=== PATIENT | female | born 1990 | race Caucasian/White ===

== ENCOUNTER 2019-04-22 06:04 | Inpatient (IN) | payer MEDICAID, SELFPAY | END 2019-04-24 11:05 | disposition home or self-care (01) | DRG 785 | PROVIDERS: Admitting Provider Obstetrics & Gynecology; Visit Provider Obstetrics & Gynecology | DX: O34.211 Maternal care for low transverse scar from previous cesarean delivery (principal); N85.8 Other specified noninflammatory disorders of uterus; Z3A.40 40 weeks gestation of pregnancy; Z37.0 Single live birth; O69.81X0 Labor and delivery complicated by cord around neck, without compression, not applicable or unspecified; Z30.2 Encounter for sterilization ==

== ENCOUNTER 2020-04-21 18:13 | Emergency (ER) | payer MEDICAID, SELFPAY ==
[2020-04-21 18:44] VITALS: BP 137/98; PULSE 98; RESP 14; TEMP 36.8; O2SAT 97; BMI 29.2
--- NOTE | 2020-04-21 19:10 | ED_ITS ---
HPI - Dental/Oral General: Chief complaint: Dental/Oral Stated complaint: Dental/oral Time Seen by Provider: 04/21/20 18:54 History of Present Illness: HPI Narrative: Complains about right upper molar abscess which she has had many times previously. Is scheduled to get her teeth removed here soon. Complaint: tooth pain Teeth map: 1. Onset (ago): day(s) Duration: constant Severity: moderate Severity scale (1-10): 4 Relieving factors: nothing Exacerbating factors: chewing, cold and heat Context: history of dental caries and poor dental care Associated symptoms: Reports no associated symptoms; Denies fever(s) Review of Systems Const: Denies: fever(s), chills or body aches Eyes: Denies: change in vision or blurry vision ENMT: Reports: dental pain and other (Is able to move the jaw and talk without problems); Denies: throat pain or nasal congestion Card: Denies: chest pain or dyspnea on exertion Resp: Denies: dyspnea, productive cough or non-productive cough GI: Denies: abdominal pain, nausea or vomiting Musc: Denies: extremity pain Skin/Breast: Denies: rash Neuro: Denies: headache(s) Psych: Denies: anxiety or depression Rios/Lymph: Denies: easy bruising Physical Exam Const: COMMON NORMALS: no acute distress HENMT: TEETH & GINGIVA IMAGES: 1. Swelling to the gum next #2 #1 no pus pocke ts noted teeth very poor shape Psych: COMMON NORMALS: mental status grossly normal Course Vital Signs: Vital signs: Vital Signs Temperature 98.2 F 04/21/20 18:44 Pulse Rate 98 04/21/20 18:44 Respiratory Rate 14 04/21/20 18:44 Blood Pressure 137/98 04/21/20 18:44 Pulse Oximetry 97 04/21/20 18:44 Discharge Plan Discharge Patient Disposition: Home Clinical Impression: Dental abscess Condition: Stable Prescriptions: New tramadol 50 mg tablet 50 mg PO Q8H PRN (Reason: pain) Qty: 10 RF: 0 clindamycin HCl 300 mg capsule 300 mg PO TID 7 Days Qty: 21 RF: 0 Discharge Orders: Discharge ED (Routine); Ordered 04/21/20 Ordered By: Osmar Malin Discharge Diet: Usual diet Discharge Activity: Resume usual activity Patient Instructions: Dental Abscess (ED) Activity Restrictions/Additional Instructions: Follow-up dentist soon as possible take medicine as directed. Coding Level of Care Code ED Director Of Manufacturing Operations for Lala Linda
[2020-04-21] MEDS: clindamycin 150 mg Capsule 300 MG PO ×2 (19:17)
[2020-04-21] MEDS: HYDROcodone-acetaminophen 5-325 mg Tablet 1 TAB PO (19:17)
[2020-04-21] MEDS: TRAMadol 50 mg Tablet PO (19:18)
== END 2020-04-21 19:24 | disposition home or self-care (01) ==
PROVIDERS: Emergency Provider Nurse Practitioner Family
DX: K04.7 Periapical abscess without sinus (principal)
CPT/HCPCS: 12345; 99281; 99283

== ENCOUNTER 2020-09-13 14:17 | Emergency (ER) | payer SELFPAY ==
[2020-09-13 14:33] VITALS: BP 122/88; PULSE 87; RESP 18; TEMP 36.6; O2SAT 98; BMI 29.7
[2020-09-13 14:53] LABS: Basophils % 0.4 %; Hematocrit 39.9 % (37.0-47.0); Hemoglobin 12.8 g/dL (11.5-15.3); Lymphocytes # 1.7 10^3/uL (0.8-4.8); Lymphocytes % 18.5 %; Mean Corpuscular HGB Conc 32.1 g/dL (30.0-36.0); Mean Corpuscular Hemoglobin 28.2 pg (28.0-34.0); Mean Corpuscular Volume 87.9 fL (81-99); Mean Platelet Volume 10.1 fL (7.4-10.4); Monocytes # 0.5 10^3/uL (0.2-0.9); Monocytes % 5.1 %; Neutrophils # 6.89 10^3/uL (1.8-7.7); Neutrophils % 75.8 %; Nucleated Red Blood Cells % 0 %; Platelet Count 234 10^3/cmm (130-400); Red Blood Count 4.54 10^6/uL (4.1-5.3); Red Cell Distribution Width 13.3 % (12.1-15.1); White Blood Count 9.1 10^3/uL (4.0-10.0)
[2020-09-13 15:06] LABS: HCG, Serum Qual Negative (Negative)
[2020-09-13 15:13] LABS: Alanine Aminotransferase 13 U/L (0-33); Albumin Level 4.3 g/dL (3.5-5.2); Alkaline Phosphatase 50 IU/L (35-105); Anion Gap 11.9 (5-19); Aspartate Amino Transferase 17 U/L (0-32); Blood Urea Nitrogen 8 mg/dL (6-20); Calcium 8.9 mg/dL (8.5-10.5); Carbon Dioxide 26 mmol/L (22-29); Chloride 103 mmol/L (98-107); Creatinine Clr Calc Pharmacy 134.0201; Globulin 2.8 g/dL (1.3-4.6); Glomerular Filtration Rate 117.4 mL/min (90-130); Glucose 84 mg/dL (65-115); Osmolality Calculated 282 mOsm/kg (285-295); Potassium 3.9 mmol/L (3.5-5.1); Sodium 137 mmol/L (136-145); Total Bilirubin 0.6 mg/dL (0.15-1.2); Total Protein 7.1 g/dL (6.6-8.7)
[2020-09-13 15:17] LABS: Add Urine Microscopic? YES; Bilirubin Urine Neg (Negative); Blood Urine 3+ (Negative); Glucose Urine UA Norm (Normal); Ketones Urine 1+ (Negative); Leukocyte Esterase Urine 2+ (Negative); Nitrate Urine Negative (Negative); Protein Urine 1+ (Negative); Urine Appearance Cloudy (CLEAR); Urine Color Dark Yellow (Yellow); Urobilinogen Urine Norm (Negative); pH Urine 6 (5-7)
--- NOTE | 2020-09-13 15:17 | ED_ITS ---
HPI - Female Genitourinary General: Chief complaint: Urogenital-Female Stated complaint: blood in urine Time Seen by Provider: 09/13/20 14:44 Source: patient Mode of arrival: ambulatory Limitations: no limitations History of Present Illness: HPI Narrative: Patient is a 29-year-old female who presents to ED today with a complaint of hematuria, dysuria, foul-smelling odor, urinary urgency and frequency. She is also having some mild lower back pain. She denies vaginal bleeding. LMP was approximately a week ago. She denies vaginal discharge, vaginal odor, or concern for STDs. No suprapubic abdominal or pelvic pain. MD elicited complaint: dysuria and back pain Onset (ago): day(s) Severity: moderate Consistency: intermittent Vaginal discharge: none Vaginal bleeding: none Urinary symptoms: Dysuria, Foul Smelling Urine, Frequency, Hematuria and Urgency Exacerbating factors: urination Relieving factors: none Associated symptoms: Reports no associated symptoms; Deny abdominal pain, headache(s) or nausea Treatment prior to arrival: none Sexual activity: Yes (monogamous with ) Patient : No Review of Systems Const: Denies: fever(s), chills, body aches, fatigue or malaise Card: Denies: chest pain Resp: Denies: dyspnea GI: Denies: abdominal pain, nausea, vomiting, diarrhea or change in stool character : Reports: dysuria, urinary frequency, urinary urgency and hematuria; Denies: flank pain, dribbling, urinary incontinence, genital lesions, genital pruritis, vaginal odor, vaginal bleeding or pelvic pain Musc: Denies: back pain Skin/Breast: Denies: rash Neuro: Denies: headache(s) Physical Exam Const: COMMON NORMALS: no acute distress, average body habitus, patient oriented x3, no limitations, healthy appearing, alert and well nourished Resp: COMMON NORMALS: normal respiratory effort and clear to auscultation bilaterally AUSCULTATION: clear to auscultation bilaterally Cardio: COMMON NORMALS: regular rate and regular rhythm RATE: regular rate RHYTHM: regular rhythm GI: COMMON NORMALS: Normal to inspection, nondistended, normoactive bowel sounds present, Soft to palpation, non-tender, No hepatosplenomegaly present and no masses INSPECTION: Yes normal to inspection AUSCULTATION: Yes normoactive bowel sounds PALPATION: Yes Soft to palpation and Yes No hepatosplenomegaly present : COMMON NORMALS: Yes no CVA tenderness BLADDER/KIDNEY EXAM: Yes no CVA tenderness Back/Pelvis: COMMON NORMALS: no CVA tenderness Neuro: COMMON NORMALS: patient oriented x3 SENSORIUM/ORIENTATION: Yes alert Course Vital Signs: Vital signs: Vital Signs Temperature 97.8 F 09/13/20 14:33 Pulse Rate 87 09/13/20 14:33 Respiratory Rate 18 09/13/20 14:33 Blood Pressure 122/88 09/13/20 14:33 Pulse Oximetry 98 09/13/20 14:33 MDM - Female MDM Narrative: Medical decision making narrative: Patient's vital signs are stable. She has no white count. Chemistry panel is non-concerning. UA is grossly infected. Large amount of RBCs. She has no abdominal or flank pain. Patient will be placed on Bactrim and recommend followup with PCP in 5-7 days. Discussed symptoms that would prompt a return to ED visit. Lab Data: Labs: Lab Results 09/13/20 09/13/20 09/13/20 Range/Units 14:24 14:42 14:42 WBC 9.1 (4.0-10.0) 10^3/ uL RBC 4.54 (4.1-5.3) 10^6/u L Hgb 12.8 (11.5-15.3) g/dL Hct 39.9 (37.0-47.0) % MCV 87.9 (81-99) fL MCH 28.2 (28.0-34.0) pg MCHC 32.1 (30.0-36.0) g/dL RDW 13.3 (12.1-15.1) % Plt Count 234 (130-400) 10^3/c mm MPV 10.1 (7.4-10.4) fL Neut % (Auto) 75.8 % Lymph % (Auto) 18.5 % [place] % (Auto) 5.1 % Eos % (Auto) 0.0 % Baso % (Auto) 0.4 % Neut # (Auto) 6.89 (1.8-7.7) 10^3/u L Lymph # (Auto) 1.7 (0.8-4.8) 10^3/u L [place] # (Auto) 0.5 (0.2-0.9) 10^3/u L Eos # (Auto) 0.0 (0.0-0.8) 10^3/u L Baso # (Auto) 0.0 (0.0-0.1) 10^3/u L Nucleated RBC % (a uto) 0 % Nucleated RBCs # 0.0 /100WBC Sodium 137 (136-145) mmol/L Potassium 3.9 (3.5-5.1) mmol/L Chloride 103 (98-107) mmol/L Carbon Dioxide 26 (22-29) mmol/L Anion Gap 11.9 (5-19) BUN 8 (6-20) mg/dL Creatinine 0.6 (0.5-0.9) mg/dL GFR Calculation 117.4 (90-130) mL/min Glucose 84 (65-115) mg/dL Calculated Osmolal ity 282 L (285-295) mOsm/k g Calcium 8.9 (8.5-10.5) mg/dL Total Bilirubin 0.6 (0.15-1.2) mg/dL AST 17 (0-32) U/L ALT 13 (0-33) U/L Alkaline Phosphata se 50 (35-105) IU/L Total Protein 7.1 (6.6-8.7) g/dL Albumin 4.3 (3.5-5.2) g/dL Globulin 2.8 (1.3-4.6) g/dL HCG, Qual (Negative) Urine Color Dark yellow (Yellow) Urine Appearance Cloudy (CLEAR) Urine pH 6 (5-7) Ur Specific Gravit y 1.020 (1.005-1.030) Urine Protein 1+ H (Negative) Urine Glucose (UA) Norm (Normal) Urine Ketones 1+ H (Negative) Urine Blood 3+ H (Negative) Urine Nitrate Negative (Negative) Urine Bilirubin Neg (Negative) Urine Urobilinogen Norm (Negative) mg/dL Ur Leukocyte Phoebe ase 2+ H (Negative) Urine RBC >100 H (0-2) /hpf Urine WBC 10-15 H (0-5) /hpf Ur Squamous Epith Cells 0-4 H (0-5) /hpf Amorphous Sediment Not Reportable Urine Bacteria 1+ H (NONE) /hpf 09/13/20 Range/Units 14:42 WBC (4.0-10.0) 10^3/ uL RBC (4.1-5.3) 10^6/u L Hgb (11.5-15.3) g/dL Hct (37.0-47.0) % MCV (81-99) fL MCH (28.0-34.0) pg MCHC (30.0-36.0) g/dL RDW (12.1-15.1) % Plt Count (130-400) 10^3/c mm MPV (7.4-10.4) fL Neut % (Auto) % Lymph % (Auto) % [place] % (Auto) % Eos % (Auto) % Baso % (Auto) % Neut # (Auto) (1.8-7.7) 10^3/u L Lymph # (Auto) (0.8-4.8) 10^3/u L [place] # (Auto) (0.2-0.9) 10^3/u L Eos # (Auto) (0.0-0.8) 10^3/u L Baso # (Auto) (0.0-0.1) 10^3/u L Nucleated RBC % (a uto) % Nucleated RBCs # /100WBC Sodium (136-145) mmol/L Potassium (3.5-5.1) mmol/L Chloride (98-107) mmol/L Carbon Dioxide (22-29) mmol/L Anion Gap (5-19) BUN (6-20) mg/dL Creatinine (0.5-0.9) mg/dL GFR Calculation (90-130) mL/min Glucose (65-115) mg/dL Calculated Osmolal ity (285-295) mOsm/k g Calcium (8.5-10.5) mg/dL Total Bilirubin (0.15-1.2) mg/dL AST (0-32) U/L ALT (0-33) U/L Alkaline Phosphata se (35-105) IU/L Total Protein (6.6-8.7) g/dL Albumin (3.5-5.2) g/dL Globulin (1.3-4.6) g/dL HCG, Qual Negative (Negative) Urine Color (Yellow) Urine Appearance (CLEAR) Urine pH (5-7) Ur Specific Gravit y (1.005-1.030) Urine Protein (Negative) Urine Glucose (UA) (Normal) Urine Ketones (Negative) Urine Blood (Negative) Urine Nitrate (Negative) Urine Bilirubin (Negative) Urine Urobilinogen (Negative) mg/dL Ur Leukocyte Phoebe ase (Negative) Urine RBC (0-2) /hpf Urine WBC (0-5) /hpf Ur Squamous Epith Cells (0-5) /hpf Amorphous Sediment Urine Bacteria (NONE) /hpf Discharge Plan Discharge Patient Disposition: Home Clinical Impression: Acute cystitis with hematuria Condition: Stable Prescriptions: New Bactrim DS 800-160 mg tablet 1 tab PO BID 7 Days Qty: 14 RF: 0 No Action tramadol 50 mg tablet 50 mg PO Q8H PRN (Reason: pain) Qty: 10 RF: 0 Discharge Orders: Discharge ED (Routine); Ordered 09/13/20 Ordered By: Stephany Solorzano Patient Instructions: Urinary Tract Infection in Women (ED) Activity Restrictions/Additional Instructions: Please fill and start your antibiotics immediately. You need to return to the emergency department for the onset of flank pain, severe abdominal pain, fevers greater than 100.4, repetitive episodes of vomiting, inability to hold down your antibiotics, or non-improving symptoms despite antibiotic therapy. I hope you begin to feel better soon. Coding Level of Care Code ED Lapel Padder Blindstitch for Lala Fwpedro luis Exam Detailed
[2020-09-13 15:22] LABS: Add Urine Culture? Yes; Bacteria Urine 1+ /hpf; RBC Urine >100 /hpf (0-2); Squamous Epithelial Cell Urine 0-4 /hpf (0-5)
== END 2020-09-13 15:30 | disposition home or self-care (01) ==
PROVIDERS: Emergency Provider Physician Assistant
DX: N30.01 Acute cystitis with hematuria (principal)
CPT/HCPCS: 80053; 81001; 84703; 85025; 87086; 99282

== ENCOUNTER 2021-02-19 07:28 | Emergency (ER) | payer MEDICAID, SELFPAY ==
[2021-02-19 07:35] VITALS: BP 126/77; PULSE 62; RESP 18; TEMP 36.8; O2SAT 100; BMI 28.3
--- NOTE | 2021-02-19 07:53 | ED_ITS ---
HPI - Female Genitourinary General: Chief complaint: Urogenital-Female Stated complaint: UTI COMPLICATIONS Time Seen by Provider: 02/19/21 07:29 Source: patient Mode of arrival: ambulatory Limitations: no limitations History of Present Illness: HPI Narrative: Patient is a nice 30-year-old female who presents to ED today with a complaint of dysuria over the past week. Patient states she has also having urinary frequency and urgency. She has been treating with OTC Azo with fairly good relief of symptoms however when she stopped the medication she immediately noticed burning again. She states several days ago she was having vaginal itching but states this has improved. She is complaining of vaginal discharge and vaginal odor that is abnormal for her. She states she has not had any new sexual partners and is monogamous with her . She is not complaining of dyspareunia. No abdominal or pelvic pain. Denies vaginal bleeding. No hematuria. Reports she was diagnosed with UTI back in August and prescribed Bactrim which alleviated her symptoms. MD elicited complaint: dysuria, vaginal discharge and genital itching Onset (ago): day(s) Severity: moderate Quality of pain: burning Vaginal bleeding: none Urinary symptoms: Dysuria, Frequency and Urgency Exacerbating factors: urination Relieving factors: other (Azo) Associated symptoms: Reports vaginal discharge; Deny abdominal pain, headache(s) or nausea Sexual activity: Yes (monogamous with ) Patient : No Review of Systems Const: Denies: fever(s), chills, body aches, fatigue or malaise ENMT: Denies: throat pain or odynophagia Card: Denies: chest pain Resp: Denies: dyspnea GI: Denies: abdominal pain, nausea, vomiting, diarrhea, change in bowel habits or change in stool character : Reports: dysuria, urinary frequency, urinary urgency, vaginal odor and vaginal discharge; Denies: flank pain, difficulty voiding, dribbling, nocturia, oliguria, urinary incontinence, hematuria, vaginal bleeding, pelvic pain or dyspareunia Musc: Denies: neck pain or back pain Skin/Breast: Denies: rash Neuro: Denies: headache(s) Physical Exam Const: COMMON NORMALS: no acute distress, average body habitus, patient oriented x3, no limitations, healthy appearing, alert and well nourished Resp: COMMON NORMALS: normal respiratory effort and clear to auscultation bilaterally AUSCULTATION: clear to auscultation bilaterally Cardio: COMMON NORMALS: regular rate and regular rhythm RATE: regular rate RHYTHM: regular rhythm GI: COMMON NORMALS: Normal to inspection, nondistended, normoactive bowel sounds present, Soft to palpation, non-tender, No hepatosplenomegaly present and no masses PALPATION: Yes Soft to palpation and Yes No hepatosplenomegaly present : COMMON NORMALS: Yes no CVA tenderness BLADDER/KIDNEY EXAM: Yes no CVA tenderness OTHER: pelvic exam deferred Back/Pelvis: COMMON NORMALS: no CVA tenderness Neuro: COMMON NORMALS: patient oriented x3 SENSORIUM/ORIENTATION: Yes alert Course Vital Signs: Vital signs: Vital Signs Temperature 98.2 F 02/19/21 07:35 Pulse Rate 62 02/19/21 07:35 Respiratory Rate 18 02/19/21 07:35 Blood Pressure 126/77 02/19/21 07:35 Pulse Oximetry 100 02/19/21 07:35 MDM - Female MDM Narrative: Medical decision making narrative: UA here suspicious for UTI. Will culture. Oddly on her last visit she was diagnosed with a UTI and prescribed Bactrim which she states completely alleviated her symptoms but her urine on that visit came back with no growth. She is complaining of vaginal discharge/odor on today's visit. She did not want a pelvic exam so swabs obtained via self swab method. Wet prep normal. G/C pending. Will go ahead and place on Bactrim again and await culture results. Will have her fill out account financial manager paperwork and CM to set her up with a PCP. Lab Data: Labs: Lab Results 02/19/21 02/19/21 07:41 07:41 Urine Color Yellow (Yellow) Urine Appearance Hazy A (CLEAR) Urine pH 6.5 (5-7) Ur Specific Gravit y 1.010 (1.005-1.030) Urine Protein Neg (Negative) Urine Glucose (UA) Norm (Normal) Urine Ketones Negative (Negative) Urine Blood 3+ H (Negative) Urine Nitrate Negative (Negative) Urine Bilirubin Neg (Negative) Urine Urobilinogen Norm mg/dL mg/dL (Negative) Ur Leukocyte Phoebe ase 1+ H (Negative) Urine RBC 15-25 /hpf H /hpf (0-2) Urine WBC 25-40 /hpf H /hpf (0-5) Ur Squamous Epith Cells 0-4 /hpf H /hpf (0-5) Amorphous Sediment Not Reportable Urine Bacteria 1+ /hpf H /hpf (NONE) Urine HCG, Qual Negative (Negative) Discharge Plan Discharge Patient Disposition: Home Clinical Impression: Urinary tract infection Qualifiers: Urinary tract infection type: acute cystitis Hematuria presence: with hematuria Qualified Code(s): N30.01 - Acute cystitis with hematuria Condition: Stable Prescriptions: New Bactrim DS 800-160 mg tablet 1 tab PO BID 7 Days Qty: 14 RF: 0 Discharge Orders: Discharge ED (Routine); Ordered 02/19/21 Ordered By: Stephany Solorzano Patient Instructions: Urinary Tract Infection in Women (DC), Dysuria (ED) Coding Level of Care Code ED Mass Spectrometry Manager for Chg Fwd Exam Detailed
[2021-02-19 07:54] LABS: Add Urine Microscopic? YES; Bilirubin Urine Neg (Negative); Blood Urine 3+ (Negative); Glucose Urine UA Norm (Normal); Ketones Urine Negative (Negative); Leukocyte Esterase Urine 1+ (Negative); Nitrate Urine Negative (Negative); Protein Urine Neg (Negative); Urine Appearance Hazy (CLEAR); Urine Color Yellow (Yellow); Urobilinogen Urine Norm (Negative); pH Urine 6.5 (5-7)
[2021-02-19 07:58] LABS: Add Urine Culture? Yes; Bacteria Urine 1+ /hpf; RBC Urine 15-25 /hpf (0-2); Squamous Epithelial Cell Urine 0-4 /hpf (0-5); WBC Urine 25-40 /hpf (0-5)
[2021-02-19 08:48] VITALS: RESP 18; TEMP 36.8; O2SAT 100
--- NOTE | 2021-02-21 15:01 | DCPLANNER ---
audience development manager had message to schedule a follow up appointment for patient with a primary care physician. audience development manager called [facility], spoke with Indy, gave clinic patients information. A follow up appointment was scheduled for Tuesday, March 02, 2021 at 1:[address] Robertson. audience development manager called patient and gave patient the appointment information.
--- NOTE | 2021-03-08 13:59 | DCPLANNER ---
Patient had a follow up appointment scheduled for 03.02.[address] Robertson - patient did not attend appointment.
== END 2021-02-19 08:48 | disposition home or self-care (01) ==
PROVIDERS: Emergency Provider Physician Assistant
DX: N30.01 Acute cystitis with hematuria (principal)
CPT/HCPCS: 81001; 81025; 87077; 87086; 87186; 87210; 87491; 87591; 99282

== ENCOUNTER → 2021-08-08 13:43 | Outpatient (BNVA) | payer MEDICAID, SELFPAY | PROVIDERS: Visit Provider Nurse Practitioner Family | DX: J02.9 Acute pharyngitis, unspecified (principal); R50.9 Fever, unspecified; J10.1 Influenza due to other identified influenza virus with other respiratory manifestations | CPT/HCPCS: 87400; 87880 ==

== ENCOUNTER 2021-08-20 13:01 | Outpatient (CLI) | payer MEDICAID, SELFPAY ==
--- NOTE | 2021-08-20 13:07 | XR_ITS ---
WS: [id number] PA and lateral chest, 08/20/2021 Clinical Data: DYSPNEA ON EXERTION/INFLUENZA/ACUTE COUGH Comparison: None. Findings: No nodules, masses or effusions are seen. There is a patchy opacity overlying the left diap hragm most consistent with acute pneumonia. The right lung is clear. The heart is normal. No pneumoth orax is present. The pulmonary vascularity is not remarkable XR/XR chest 2V* [id number] Impression: Patchy left lower lobe opacity most consistent with pneumonia.
== END 2021-08-20 13:02 | disposition home or self-care (01) ==
LOC: RAD 13:03
PROVIDERS: Visit Provider Family Medicine
DX: R06.09 Other forms of dyspnea (principal); R05.9 Cough, unspecified; J11.1 Influenza due to unidentified influenza virus with other respiratory manifestations
CPT/HCPCS: 71046

== ENCOUNTER → 2023-04-29 15:43 | Outpatient (BNVA) | payer MEDICAID, SELFPAY | PROVIDERS: Visit Provider Nurse Practitioner Family | DX: R39.9 Unspecified symptoms and signs involving the genitourinary system (principal); N30.01 Acute cystitis with hematuria | CPT/HCPCS: 81000; 87077; 87086; 87184 ==

== ENCOUNTER → 2023-10-27 15:33 | Outpatient (BNVA) | payer MEDICAID, SELFPAY | PROVIDERS: Visit Provider Nurse Practitioner Family | DX: R39.9 Unspecified symptoms and signs involving the genitourinary system (principal); R30.0 Dysuria | CPT/HCPCS: 81000 ==

== ENCOUNTER → 2024-10-09 15:07 | Outpatient (BNVA) | payer MEDICAID, SELFPAY | PROVIDERS: Visit Provider Emergency Medicine | DX: R39.9 Unspecified symptoms and signs involving the genitourinary system (principal) | CPT/HCPCS: 81000; 87086 ==